=== PATIENT | male | born 1980 | race Caucasian/White ===

== ENCOUNTER → 2023-07-24 | Outpatient (REF) | LOC: M PLAIMG 09:46 | PROVIDERS: ATTEND Internal Medicine | DX: R52 Pain, unspecified (principal) ==

== ENCOUNTER → 2024-03-10 | Outpatient (REF) | LOC: M PLAIMG 14:08 | PROVIDERS: ATTEND Internal Medicine | DX: R52 Pain, unspecified (principal) ==